=== PATIENT | female | born 1935 | race Caucasian/White ===

== ENCOUNTER 2021-10-24 10:48 | Emergency (ER) | payer BC ==
[2021-10-24 11:20] VITALS: TEMP 97.8; BMI 21.4
[2021-10-24 12:38] LABS: BASO % 0.7 % (0-2.0); EOS % 0.7 % (0-4.5); HEMATOCRIT 39.4 % (32.4-45.2); HEMOGLOBIN 13.3 GM/dL (10.7-15.3); LYMPH % 20.1 % (8-40); MCH 30.7 pg (25.7-33.7); MCHC 33.7 g/dl (32.0-36.0); MEAN CELL VOLUME 91.1 fl (80-96); MEAN PLT VOLUME 7.3 fl (7.5-11.1); MONO % 9.2 % (3.8-10.2); NEUT % 69.3 % (42.8-82.8); PLATELET COUNT 196 10^3/uL (134-434); RBC 4.32 M/mm3 (3.60-5.2); RDW 14.3 % (11.6-15.6); WHITE BLOOD COUNT 7.2 K/mm3 (4.0-10.0)
[2021-10-24 12:48] LABS: INR 1.05 (0.83-1.09); PROTHROMBIN TIME (PATIENT) 12.1 SEC (9.7-13.0)
[2021-10-24 12:51] LABS: ACTIVATED PTT 28.2 SECONDS (25.2-36.5)
[2021-10-24 13:00] LABS: CALCIUM 8.8 mg/dL (8.5-10.1)
[2021-10-24 13:01] LABS: ALBUMIN 3.6 g/dl (3.4-5.0); BLOOD UREA NITROGEN 16.7 mg/dL (7-18); MAGNESIUM 2.2 mg/dL (1.8-2.4)
[2021-10-24 13:04] LABS: CREATININE 0.7 mg/dL (0.55-1.3)
[2021-10-24 13:05] LABS: TOT PROT 6.8 g/dl (6.4-8.2)
[2021-10-24 13:06] LABS: BILIRUBIN,TOTAL 0.8 mg/dL (0.2-1)
[2021-10-24 13:52] VITALS: BP 150/60; PULSE 60
== END 2021-10-24 13:53 | disposition home or self-care (01) ==
LOC: JER 10:48
DX: K62.5 Hemorrhage of anus and rectum (principal)
CPT/HCPCS: 36415; 80053; 82272; 83605; 83735; 85025; 85610; 85730; 86850; 86900; 86901; 99283-25

== ENCOUNTER 2023-06-15 18:37 | Emergency (ER) | payer BC ==
[2023-06-15 18:46] VITALS: BP 122/71; PULSE 71; RESP 16; TEMP 98.3; BMI 20.7
== END 2023-06-15 22:00 | disposition home or self-care (01) ==
LOC: JER 18:37 → JERFT 18:37
DX: R22.42 Localized swelling, mass and lump, left lower limb (principal); M25.572 Pain in left ankle and joints of left foot
CPT/HCPCS: 73610-TC-LT-FY; 73630-TC-LT; 99283-25